=== PATIENT | female | born 1945 | race Caucasian/White ===

== ENCOUNTER → 2017-03-29 | Outpatient (CLI) | payer OTHER ==
[~2017-03-29] MED LIST: CALTRATE 600+D PO; CELEXA PO; VICODIN 5/500 T1 TAB PO; VIT B6 PO; ZOCOR PO
--- NOTE | ~2017-03-29 | MY30 ---
[facility] A Service [facility] RADIOLOGY TEXT RESULTS PATIENT: LASHAUN ABBOTT LOCATION: [facility] : 41 UNIT #: [id number] AGE: [address]: Fuentes Acevedo MD SEX: F ORDER DR: [id number] [place] [id number] O MR#: [id number] Acc #: [id number] NAME: LASHAUN ABBOTT : 1945 SEX: F STUDY DATE/TIME: 03/29/2017 14:27 UNIT: [facility] ROOM: STUDY DESCRIPTION: MY SCREEN [place] BILAT DIGITAL Attending Physician: Fuentes Acevedo Jr., M.D. Referring Physician: Fuentes Acevedo Jr., M.D. Ordering Physician: Fuentes Acevedo Jr., M.D. Primary Care Physician: Fuentes Acevedo Jr., M.D. MEDICAL IMAGING REPORT This report is preliminary unless electronic signature is present. EXAM Digital screening mammogram, 03/29/2017, [facility]. HISTORY 71-year-old woman positive family history, maternal aunt. Annual screen. COMPARISON Comparison mammograms 09/20/2007, 01/24/2015. TECHNIQUE Digital imaging of each breast was completed utilizing screening protocol. Review includes FDA-approved CAD device. FINDINGS Breast parenchyma is fatty replaced and stable. There is no interval occurring breast mass. There are no suspicious microcalcifications and no architectural deformity. IMPRESSION Negative mammogram. Annual screening recommended. BIRADS 1. Patients over the age of 40 are entered into a reminder system with target due date for the next mammogram. A result letter will also be sent to the patient. BIRADS: 1 Negative. Dictated by... Shelton Bush M.D. [facility] A Service [facility] RADIOLOGY TEXT RESULTS PATIENT: LASHAUN ABBOTT LOCATION: [facility] : 41 UNIT #: [id number] AGE: [address]: Fuentes Acevedo MD SEX: F ORDER DR: THIS IS AN ELECTRONICALLY VERIFIED REPORT Shelton Bush M.D. at 03/31/2017 12:02 PM MENG/dayanara TD: 03/29/2017 19:43 JOB #: [id number] MEDICAL IMAGING REPORT Page 1 of 1
== END | disposition home or self-care (01) ==
LOC: SMAM 13:38
DX: Z12.31 Encounter for screening mammogram for malignant neoplasm of breast (principal); Z80.3 Family history of malignant neoplasm of breast
CPT/HCPCS: G0202